=== PATIENT | male | born 1980 ===

== ENCOUNTER 2017-07-06 10:23 | Emergency (ER) | payer SELFPAY ==
[2017-07-06] MEDS ORDERED: NORCO 5-325 TA1 EACH PO (12:29)
[2017-07-06] MEDS ORDERED: CLEOCIN HCL300 MG PO (12:29)
== END 2017-07-06 11:00 | disposition left against medical advice (07) ==
LOC: ED 10:23
DX: Z53.21 Procedure and treatment not carried out due to patient leaving prior to being seen by health care provider (principal)